=== PATIENT | female | born 1960 | race Caucasian/White ===

== ENCOUNTER 2024-05-17 07:01 | Day surgery (SDC) | payer OTHER, SELFPAY ==
--- NOTE | 2024-05-04 15:35 | HPS.HSE ---
Family Physician
-
Family Physician: NOT KNOW UNKNOWN - PT DOES
Chief Complaint
-
Paroxysmal atrial fibrillation.
History of Present Illness
The patient is a 63 year old female presenting today for paroxysmal atrial fibrillation. The patient describes a history of exertional fatigue and an overall sense of tiredness which is likely attributed to her arrhythmia. An outpatient
rhythm monitor in January 2024 revealed a 30% atrial fibrillation burden with the longest single episode being 7 hours and 12 minutes. Her average heart rate was 119 beats per minute with her fastest heart rate being 191. She is on current
pharmacological therapy with Metoprolol Succinate. She has been compliant with Eliquis for oral anticoagulation due to a CHADS-VASc of 2. She is interested in pursuing pulmonary vein isolation for further arrhythmia management. Prior to undergoing
this procedure, she will have a transesophageal echocardiogram to definitively rule out a left atrial appendage thrombus. She denies any new complaints today such as chest pain, shortness of breath, nausea, vomiting, diarrhea, lightheadedness,
dizziness, cough, sore throat, or fever.
Medical History
Past Medical History
Past Medical History: Reports Other
Additional Past Medical History:
1. Paroxysmal atrial fibrillation, pharmacological therapy with Metoprolol Succinate, oral anticoagulation with Eliquis.
2. Hypertension.
3. Hyperlipidemia.
4. PACs/PVCs.
5. Mild emphysematous changes on chest CT 05/03/2024.
6. Mild obstructive sleep apnea, no device needed.
7. Fatty liver disease.
8. Chronic diarrhea.
9. Vertigo.
10. Hypothyroidism.
11. Probable left thyroid nodule, 6 mm, on chest CT 05/03/2024.
12. Left breast cancer, DCIS, status post left lumpectomy x3, 2004, left mastectomy, 2007, and radiation.
13. Osteopenia.
14. Anxiety.
15. Remote history of tobacco abuse.
Past Surgical History: Reports Other
Additional Past Surgical History:
1. Left mastectomy.
2. Left lumpectomy x3.
3. Cholecystectomy.
4. Endometrial ablation.
5. Colonoscopy x3.
Social History
Tobacco: Former Smoker (She is former 1 pack per day cigarette smoker who quit tobacco altogether in her early 40's. )
Alcohol: Other (Social)
Personal:
Living: With Family (in a split level home.)
Family History
Family History: Not pertinent
Allergies / Home Medications
Allergy/Medication List:
Home medications:
1. Apixaban 5 mg p.o. twice a day.
2. Calcium and Vitamin D3 1 capsule p.o. twice a day.
3. Cholecalciferol 50 mcg p.o. daily.
4. Escitalopram 10 mg p.o. daily.
5. Hydrochlorothiazide 12.5 mg p.o. daily.
6. Levothyroxine 25 mcg p.o. daily.
7. Losartan 50 mg p.o. daily.
8. Marine collagen 1 dose p.o. daily.
9. Metoprolol Succinate 25 mg p.o. daily.
10. Rosuvastatin 40 mg p.o. daily.
11. PreserVision 1 tablet p.o. twice a day.
Allergies: No known allergies.
Review of Systems
-
A 12 point ROS was completed and negative except as noted: Yes
Physical Exam
Vital Signs
Blood pressure 169/76. Heart rate 74. Respirations 18. Pulse ox 98% on room air.
Height 5 feet, 1 inch. Weight 70.1 kg. BMI 29.2.
Physical Exam
General: Well Developed, Well Nourished and No Apparent Distress
HEENT: NormoCephalic, Moist mucous membranes, Atraumatic and PERRLA
Respiratory: Clear
Cardiac: Regular Rhythm
GI: Soft, Non Tender and Non Distended
Musculoskeletal: No Edema and Normal Gait & Station
Neuro: AO x 3 and Nonfocal/grossly intact
Laboratory Results
-
DIAGNOSTIC STUDIES as of 05/03/2024: White blood cell count 7.4. Hemoglobin 12.9. Platelet count 273,000. PT 17.1. INR 1.42. Sodium 144. Potassium 4.5. BUN 15. Creatinine 0.7. Glucose 104. Calcium 2.1. Magnesium 9.4. AST 29. ALT 31. Albumin 4.3.
Blood type B positive.
EKG 05/03/2024: Normal sinus rhythm. Inferior infarct, age undetermined.
Chest CT 05/03/2024: On the right, there is an accessory right middle lobe pulmonary vein and an accessory superior segment right lower lobe pulmonary vein. There is diminished enhancement along the nondependent margin of the left atrial appendage,
likely reflecting underfilling. However, thrombus would be difficult to exclude with certainty. Reflux of contrast material into the inferior vena cava and central hepatic veins. This suggests possibility of elevated right-sided heart pressure or
tricuspid insufficiency. Subtle low-attenuation nodularity in the left lobe of the thyroid gland measuring approximately 6 mm. Recommend ultrasound follow-up. Mild emphysematous lung changes. Fatty infiltration of liver. Prior cholecystectomy.
Echocardiogram 03/17/2024: Ejection fraction is 60-65%. No significant valvular disease.
Impression/Plan
-
IMPRESSION/PLAN:
1. Paroxysmal atrial fibrillation: The patient is in need of pulmonary vein isolation with Dr. Reyes Tripathi on 05/18/2024. Prior to undergoing this, however, she will proceed with a transesophageal echocardiogram with Dr. Rayo Shelton on
05/17/2024. The benefits and risks of the procedure have been explained to the patient. The patient understands these risks and wishes to proceed.
[2024-05-17 07:50] VITALS: BMI 29.5
== END 2024-05-17 09:51 | disposition home or self-care (01) ==
LOC: CATH 07:01
PROVIDERS: ATTENDING PHYSICIAN Internal Medicine Cardiovascular Disease; FAMILY PHYSICIAN Family Medicine
DX: I48.0 Paroxysmal atrial fibrillation (principal); I08.1 Rheumatic disorders of both mitral and tricuspid valves; I10 Essential (primary) hypertension; E78.5 Hyperlipidemia, unspecified; G47.33 Obstructive sleep apnea (adult) (pediatric); K76.0 Fatty (change of) liver, not elsewhere classified; E03.9 Hypothyroidism, unspecified; Z85.3 Personal history of malignant neoplasm of breast; Z87.891 Personal history of nicotine dependence; Z79.01 Long term (current) use of anticoagulants
CPT/HCPCS: 93312; 93320; 93325

== ENCOUNTER 2024-05-18 05:57 | Day surgery (SDC) | payer OTHER, SELFPAY ==
[2024-05-03 09:45] VITALS: BMI 29.2
[2024-05-03 10:25] LABS: % Basophils 0.4 % (0-2); % Eosinophils 2.4 % (0-6); % Immature Granulocytes 0.3 % (0-0.5); % Lymphocytes 23.3 % (20.5-51.1); % Monocytes 5.8 % (1.7-9.3); % Neutrophils 67.8 % (42.2-75.2); Absolute Eosinophils 0.2 10^3/uL (0-0.7); Absolute Lymphocytes 1.7 10^3/uL (1.2-3.4); Absolute Monocytes 0.4 10^3/uL (0.1-0.6); Hematocrit 38.8 % (37.0-47.0); Hemoglobin 12.9 g/dL (12.0-16.0); Mean Corp Hgb Conc. 33.2 g/dL (33.0-37.0); Mean Corpuscular Hgb 28.2 pg (27.0-31.0); Mean Corpuscular Volume 84.9 fL (81.0-99.0); Mean Platelet Volume 9.1 fL (7.4-10.4); Nucleated Red Blood Cells % 0 %; Platelet Count 273 10^3/uL (130-400); Red Blood Cell Count 4.57 10^6/uL (4.20-5.40); Red Cell Dist. Width 13.5 % (11.5-14.5); White Blood Cell Count 7.4 10^3/uL (4.8-10.8)
[2024-05-03 10:37] LABS: INR 1.42; PT 17.1 Sec (11.4-14.6)
[2024-05-03 10:39] LABS: ALT (SGPT) 31 U/L (0-35); AST (SGOT) 29 U/L (14-36); Albumin 4.3 g/dl (3.5-5.0); Alkaline Phosphatase 102 U/L (38-126); Blood Urea Nitrogen 15 mg/dl (7-17); Calcium 9.4 mg/dl (8.4-10.2); Carbon Dioxide 30 mmol/L (22-30); Chloride 106 mmol/L (98-107); Estimated Creatinine Clearance 73 ml/min; Glucose 104 mg/dl (70-99); Magnesium 2.1 mg/dl (1.6-2.3); Potassium 4.5 mmol/L (3.5-5.1); Sodium 144 mmol/L (135-145); Total Bilirubin 0.6 mg/dl (0.2-1.3); Total Protein 6.9 g/dl (6.3-8.2); eGFR > 60.00
--- NOTE | 2024-05-03 13:44 | HPS.HSE ---
Family Physician
-
Family Physician: NOT KNOW UNKNOWN - PT DOES
Chief Complaint
-
Paroxysmal atrial fibrillation.
History of Present Illness
The patient is a 63 year old female presenting today for paroxysmal atrial fibrillation. The patient describes a history of exertional fatigue and an overall sense of tiredness which is likely attributed to her arrhythmia. An outpatient
rhythm monitor in January 2024 revealed a 30% atrial fibrillation burden with the longest single episode being 7 hours and 12 minutes. Her average heart rate was 119 beats per minute with her fastest heart rate being 191. She is on current
pharmacological therapy with Metoprolol Succinate. She has been compliant with Eliquis for oral anticoagulation due to a CHADS-VASc of 2. She is interested in pursuing pulmonary vein isolation for further arrhythmia management. She denies any new
complaints today such as chest pain, shortness of breath, nausea, vomiting, diarrhea, lightheadedness, dizziness, cough, sore throat, or fever.
Medical History
Past Medical History
Past Medical History: Reports Other
Additional Past Medical History:
1. Paroxysmal atrial fibrillation, pharmacological therapy with Metoprolol Succinate, oral anticoagulation with Eliquis.
2. Hypertension.
3. Hyperlipidemia.
4. PACs/PVCs.
5. Mild emphysematous changes on chest CT 05/03/24.
6. Mild obstructive sleep apnea, no device needed.
7. Fatty liver disease.
8. Chronic diarrhea.
9. Vertigo.
10. Hypothyroidism.
11. Probable left thyroid nodule, 6 mm, on chest CT 05/03/2024.
12. Left breast cancer, DCIS, status post left lumpectomy x3, 2004, left mastectomy, 2007, and radiation.
13. Osteopenia.
14. Anxiety.
15. Remote history of tobacco abuse.
Past Surgical History: Reports Other
Additional Past Surgical History:
1. Left mastectomy.
2. Left lumpectomy x3.
3. Cholecystectomy.
4. Endometrial ablation.
5. Colonoscopy x3.
Social History
Tobacco: Former Smoker (She is former 1 pack per day cigarette smoker who quit tobacco altogether in her early 40's. )
Alcohol: Other (Social.)
Personal:
Living: With Family (in a split level home. )
Family History
Family History: CAD
Allergies / Home Medications
Allergy/Medication List:
Home medications:
1. Apixaban 5 mg p.o. twice a day.
2. Calcium and Vitamin D3 1 capsule p.o. twice a day.
3. Cholecalciferol 50 mcg p.o. daily.
4. Escitalopram 10 mg p.o. daily.
5. Hydrochlorothiazide 12.5 mg p.o. daily.
6. Levothyroxine 25 mcg p.o. daily.
7. Losartan 50 mg p.o. daily.
8. Marine collagen 1 dose p.o. daily.
9. Metoprolol Succinate 25 mg p.o. daily.
10. Rosuvastatin 40 mg p.o. daily.
11. PreserVision 1 tablet p.o. twice a day.
Allergies: No known allergies.
Review of Systems
-
A 12 point ROS was completed and negative except as noted: Yes
Physical Exam
Vital Signs
Blood pressure 169/76. Heart rate 74. Respirations 18. Pulse ox 98% on room air.
Height 5 feet, 1 inch. Weight 70.1 kg. BMI 29.2.
Physical Exam
General: Well Developed, Well Nourished and No Apparent Distress
HEENT: NormoCephalic, Moist mucous membranes, Atraumatic and PERRLA
Respiratory: Clear
Cardiac: Regular Rhythm
GI: Soft, Non Tender and Non Distended
Musculoskeletal: No Edema and Normal Gait & Station
Neuro: AO x 3 and Nonfocal/grossly intact
Laboratory Results
-
05/03/24 10:16
05/03/24 10:16
Laboratory Results
PT 17.1 Sec (11.4-14.6) H 05/03/24 10:16
INR 1.42 05/03/24 10:16
Total Bilirubin 0.6 mg/dl (0.2-1.3) 05/03/24 10:16
AST 29 U/L (14-36) 05/03/24 10:16
ALT 31 U/L (0-35) 05/03/24 10:16
Alkaline Phosphatase 102 U/L (38-126) 05/03/24 10:16
Blood type B positive.
EKG 05/03/2024: Normal sinus rhythm. Inferior infarct, age undetermined.
Chest CT 05/03/2024: On the right, there is an accessory right middle lobe pulmonary vein and an accessory superior segment right lower lobe pulmonary vein. There is diminished enhancement along the nondependent margin of the left atrial appendage,
likely reflecting underfilling. However, thrombus would be difficult to exclude with certainty. Reflux of contrast material into the inferior vena cava and central hepatic veins. This suggests possibility of elevated right-sided heart pressure or
tricuspid insufficiency. Subtle low-attenuation nodularity in the left lobe of the thyroid gland measuring approximately 6 mm. Recommend ultrasound follow-up. Mild emphysematous lung changes. Fatty infiltration of liver. Prior cholecystectomy.
Echocardiogram 03/17/2024: Ejection fraction is 60-65%. No significant valvular disease.
Impression/Plan
-
IMPRESSION/PLAN:
1. Paroxysmal atrial fibrillation: The patient is in need of pulmonary vein isolation with Dr. Reyes Tripathi on 05/18/2024. The benefits and risks of the procedure have been explained to the patient. The patient understands these risks and
wishes to proceed. She will take no medications the morning of his procedure. Of note, she is interested in participating in the Volt study. She is aware her procedure may need to be moved in order to accommodate the research schedule.
2. Abnormal chest CT 05/03/2024: Unfortunately her chest CT could not definitively rule out a left atrial appendage thrombus. Because of this, she will be scheduled to undergo a pre-procedural transesophageal echocardiogram prior to moving forwarded
with pulmonary vein isolation. Also seen on chest CT was subtle, low-attenuation nodularity in the left lobe of the thyroid gland measuring approximately 6 mm. The patient was made aware of this finding through phone call 05/04/2024. Results will be
sent to her primary care physician for further follow-up and management.
[2024-05-18] VITALS (11 sets, daily range): BP systolic 128–197; BP diastolic 71–104; BMI 29.2
[2024-05-18 08:58] LABS: ACT-LR - POC 308 Seconds (116-155)
[2024-05-18 09:16] LABS: ACT-LR - POC 311 Seconds (116-155)
[2024-05-18 09:39] LABS: ACT-LR - POC 314 Seconds (116-155)
--- NOTE | 2024-05-18 13:51 | ITS.CL.ABL ---
Display Decorator - Ablation
Ablation
Procedure Report:
ELECTROPHYSIOLOGIC STUDY AND POSSIBLE ABLATION
DATE: May 18, 2024
Primary Care Provider: Dr. Gian Acuna
Primary Casting House Worker: Dr Earl Clayton
INDICATION:
Symptomatic Atrial Fibrillation.
Paroxysmal
HISTORY: See H and P.
Symptomatic AF, poorly controlled with attempted medical therapy
HAS-BLED: 1
CHADSVASc: 3
HTN
Age
F Gender
PRESENTING RHYTHM: SR
HISTORY: See H and P.
Symptomatic AF, poorly controlled with attempted medical therapy.
ANTICOAGULATION: apixaban
'TIME-OUT': called and confirmed.
SEDATION/ANESTHESIA: provided via the anesthesia department using general anesthesia.
PROCEDURE:
Ultrasound Guidance performed by md was utilized for femoral venous Vascular Access b/l.
A decapolar CS catheter was placed within the CS for mapping and pacing.
The intracardiac ultrasound catheter was positioned in the RA for continuous intracardiac ultrasound imaging.
Heparin bolus and infusion to target ACT at 300 -350 seconds was administered. Transseptal puncture was performed. This entailed advancing a sheath with dilator into the superior vena cava and withdrawing both (monitoring intracardiac ultrasound,
fluoroscopy and tip pressure) with the tip oriented toward the atrial septum. The fossa ovalis was engaged (indicated by sudden displacement of the sheath tip as well as tenting of the fossa seen on intracardiac ultrasound).
AcVMTurbo transseptal system was used. Left atrial catheter position was confirmed by echocardiographic imaging, pressure monitoring (LA mean pressure 13 mm Hg) and fluoroscopy. The sheath was advanced over the dilator and positioned in the left
atrium.
The multipolar mapping catheter was initially positioned through the transseptal sheath for high density mapping.
Geometry and voltage mapping was performed using the Airborne Mobile multipolar grid catheter. Navex was utilized for three-dimensional electroanatomical mapping.
A 3-D map was created using Navex. A 3-D reconstructed CT image was compared to the 3-D Navex map to assist in anatomic evaluation, mapping and ablation.
The Silent Communication Pulse Select PFA catheter and system was used for cardiac ablation. Catheter positioning was guided and confirmed using both I.C.E. and fluoroscopy.
PV isolation approach was used to electrically isolate each PV ostia.
Remapping with the Airborne Mobile multipolar grid catheter found that all PVPs were eliminated at each vein demonstrating entrance block. Also pacing from the multipolar mapping catheter around the the circumference of the ostia was performed at 10 ma and
2.0 msec output to assess for exit block. This demonstrated electrical isolation at each of the pulmonary vein ostia LSPV, LIPV, RSPV, RIPV.
Additional energy applications/additional ablation set was required to accomplish wide area circumferential ablation around each of the pulmonary vein sets.
I.C.E. :
Pre-Ablation Post-Ablation
LVEF: 55% 55%
WMA: None none
Pericardial effusion: None none
COMPLICATIONS:
None
SUMMARY:
- Mapping and ablation to isolate the PVs
- Additional AF ablation set after PVI.
- 3-D Electroanatomical Mapping
- Intracardiac Ultrasound
Post ablation, I discussed today's findings and results with the patient's , Luca.
RECOMMENDATIONS:
- Observe in monitored bed.
- Maintain oral anticoagulation.
- Office visit with me in 3 months.
- Continue cardiovascular care with Dr Clayton.
Copy to:
Dr. Gian Acuna
Dr Earl Clayton
--- NOTE | 2024-05-18 14:04 | W.PN.UPDATE ---
Update Note
Progress Note Update
Pt seen post PFA. Bilat groin sites without ht/bleeding, non tender. Post EKG NSR 80s, no acute changes. Resume eliquis today, continue other meds as before. Followup at [facility] arranged. Home today if groin site/tele remain stable.
== END 2024-05-18 15:00 | disposition home or self-care (01) ==
LOC: CATH 05:57
PROVIDERS: ATTENDING PHYSICIAN Internal Medicine Cardiovascular Disease; FAMILY PHYSICIAN Family Medicine
DX: I48.0 Paroxysmal atrial fibrillation (principal); R53.83 Other fatigue; I10 Essential (primary) hypertension; E78.5 Hyperlipidemia, unspecified; G47.33 Obstructive sleep apnea (adult) (pediatric); K76.0 Fatty (change of) liver, not elsewhere classified; E03.9 Hypothyroidism, unspecified; Z87.891 Personal history of nicotine dependence; Z79.01 Long term (current) use of anticoagulants
CPT/HCPCS: C1732; C1894; C1733; C1769; C1730; C1892; C1759; C1766; 36415; 75572; 76937; 80053; 83735; 85025; 85347; 85610; 86850; 86900; 86901; 93005; 93655; 93656; Q9967